=== PATIENT | female | born 1985 | race American Indian/Alaskan Native ===

== ENCOUNTER 2022-03-09 10:26 | Emergency (ER) | payer SELFPAY ==
[2022-03-09 11:50] LABS: Basophils % (Auto) 0.6 % (0.0-1.8); Eosinophils # (Auto) 0.1 K/mm3 (0.0-0.4); Eosinophils % (Auto) 1.1 % (0.0-4.3); Hematocrit 38.4 % (30.3-42.9); Hemoglobin 12.5 gm/dl (10.1-14.3); Lymphocytes # (Auto) 1.7 K/mm3 (1.2-5.4); Lymphocytes % (Auto) 29.5 % (13.4-35.0); Mean Corpuscular HGB Conc 33 % (30-34); Mean Corpuscular Volume 92 fl (79-97); Monocytes # (Auto) 0.4 K/mm3 (0.0-0.8); Monocytes % (Auto) 7.3 % (0.0-7.3); Platelet Count 344 K/mm3 (140-440); Red Blood Count 4.19 M/mm3 (3.65-5.03); Red Cell Distribution Width 15.1 % (13.2-15.2)
[2022-03-09 12:09] LABS: Alanine Aminotransferase 13 units/L (7-56); Albumin 4.2 g/dL (3.9-5); BUN/Creatinine Ratio 14; Blood Urea Nitrogen 13 mg/dL (7-17); Hemolysis Index 8
--- NOTE | 2022-03-09 14:01 | Emergency Department Report ---
ED Abdominal Pain HPI - General Chief Complaint: Abdominal Pain Stated Complaint: STOMACH/LOWER BACK PAIN Source: patient Mode of arrival: Ambulatory Limitations: No Limitations - History of Present Illness Initial Comments: 37-year-old female presents to the ED complaining of abdominal pain x4 days. She denies any nausea vomiting or diarrhea. She states last menstrual cycle was January. Patient states that she had a last bowel movement this a.m. but she state it was hard stool. Patient states that she is possibly constipated. Patient denies any vaginal discharge at present time. Denies any fever, chills , nausea or vomiting at present time. She denies any recent travel. No acute distress noted. No ill appearance noted. MD Complaint: abdominal pain Onset/Timin -: Gradual Location: diffuse Radiation: none Severity scale (0 -10): 4 Quality: aching Consistency: intermittent Improves With: nothing Worsens With: nothing Associated Symptoms: denies other symptoms - Related Data Previous Rx's Medication Instructions Recorded Last Taken Type Nitrofurantoin [place]/M-Cryst 100 mg PO Q12HR 10 Days #20 capsule 03/09/22 Unknown Rx [Macrobid CAP] Polyethylene Glycol 3350 [Miralax] 765 gm PO QDAY 30 Days #1 bottle 03/09/22 Unk nown Rx Allergies Allergy/AdvReac Type Severity Reaction Status Date / Time No Known Allergies Allergy Unverified 03/09/22 11:21 ED Review of Systems ROS: Stated complaint: STOMACH/LOWER BACK PAIN Other details as noted in HPI Constitutional: denies: chills, fever Eyes: denies: eye pain, eye discharge, vision change ENT: denies: ear pain, throat pain Respiratory: denies: cough, shortness of breath, wheezing Cardiovascular: denies: chest pain, palpitations Endocrine: no symptoms reported Gastrointestinal: abdominal pain. denies: nausea, diarrhea Genitourinary: denies: urgency, dysuria, discharge Musculoskeletal: denies: back pain, joint swelling, arthralgia Skin: denies: rash, lesions Neurological: denies: headache, weakness, paresthesias Psychiatric: denies: anxiety, depression Hematological/Lymphatic: denies: easy bleeding, easy bruising ED Past Medical Hx - Medications Home Medications: Home Medications Medication Instructions Recorded Confirmed Last Taken Type Nitrofurantoin [place]/M-Cryst 100 mg PO Q12HR 10 Days #20 capsule 03/09/22 Unknown Rx [Macrobid CAP] Polyethylene Glycol 3350 [Miralax] 765 gm PO QDAY 30 Days #1 bottle 03/09/22 Unknown Rx ED Physical Exam - General Limitations: No Limitations General appearance: alert, in no apparent distress - Head Head exam: Present: atraumatic, normocephalic - Eye Eye exam: Present: normal appearance - ENT ENT exam: Present: mucous membranes moist - Neck Neck exam: Present: normal inspection - Respiratory Respiratory exam: Present: normal lung sounds bilaterally. Absent: respiratory distress - Cardiovascular Cardiovascular Exam: Present: regular rate, normal rhythm. Absent: systolic murmur, diastolic murmur, rubs, gallop - GI/Abdominal GI/Abdominal exam: Present: soft, normal bowel sounds - Extremities Exam Extremities exam: Present: normal inspection - Back Exam Back exam: Present: normal inspection - Neurological Exam Neurological exam: Present: alert, oriented X3 - Psychiatric Psychiatric exam: Present: normal affect, normal mood - Skin Skin exam: Present: warm, dry, intact, normal color. Absent: rash ED Course Vital Signs 03/09/22 11:19 Temperature 97.6 F Pulse Rate 87 Respiratory 18 Rate Blood Pressure 172/102 [Left] O2 Sat by Pulse 99 Oximetry ED Medical Decision Making - Lab Data Result diagrams: 03/09/22 11:31 03/09/22 11:31 - Radiology Data [facility] [address] [place] [address] XRay Report Signed Patient: TATI JONAS MR#: [id number] : 1985 Acct:[id number] Age/Sex: 37 / F ADM Date: 03/09/22 Loc: ED Attending Dr: Ordering Physician: SHARIFA KIM Date of Service: 03/09/22 Procedure(s): XR abdomen 2V Accession Number(s): [id number] cc: SHARIFA KIM Fluoro Time In Minutes: ABDOMEN 2 VIEW(S) INDICATION / CLINICAL INFORMATION: abd pain possible constipation. COMPARISON: None available. FINDINGS: TUBES / LINES: None. BOWEL GAS PATTERN/EXTRALUMINAL GAS: No acute findings. Moderate constipation. No pneumatosis or secondary signs of free air. ADDITIONAL FINDINGS: No significant additional findings. IMPRESSION: 1. No acute findings. Moderate constipation. Signer Name: Rancho Guadarrama MD Signed: 03/09/2022 2:29 PM Workstation Name: [id number] Transcribed By: ISHAAN Dictated By: Rancho Guadarrama MD Electronically Authenticated By: Rancho Guadarrama MD Signed Date/Time: 03/09/221428 DD/ 28 TD/TT: Print Cancel - Medical Decision Making 37-year-old female presents to the ED complaining of abdominal pain x4 days. She denies any nausea vomiting or diarrhea. She states last menstrual cycle was January. Patient states that she had a last bowel movement this a.m. but she state it was hard stool. Patient states that she is possibly constipated. Patient denies any vaginal discharge at present time. Denies any fever, chills , nausea or vomiting at present time. She denies any recent travel. No acute distress noted. No ill appearance noted. Physical examination patient has tenderness around the periumbilical area. X-ray of the abdomen abdominal shows moderate constipation. UA significant for acute urinary tract infection Rechecked the patient is resting quietly quietly and comfortable and feeling better. I discussed the results of diagnostic study, my clinical impression and the plan for further treatment with the patient. Patient agrees with plan and discharge at this present time. All question addressed. I have given the patient instruction regarding a diagnosis ,expectation ,follow- up and return precaution. I explained to the patient that emergent condition may arise and to return to the ED for new worsen and any new persisting condition. I have explained the importance of following up with the primary care physician or referral physician listed below has instructed. The patient verbalized understanding of discharge instruction. Abnormal Lab Results 03/09/22 03/09/22 03/09/22 11:31 11:31 11:31 WBC 5.9 RBC 4.19 Hgb 12.5 Hct 38.4 MCV 92 MCH 30 MCHC 33 RDW 15.1 Plt Count 344 Lymph % (Auto) 29.5 [place] % (Auto) 7.3 Eos % (Auto) 1.1 Baso % (Auto) 0.6 Lymph # (Auto) 1.7 [place] # (Auto) 0.4 Eos # (Auto) 0.1 Baso # (Auto) 0.0 Seg Neutrophils % 61.5 Seg Neutrophils # 3.6 Sodium 139 Potassium 4.1 Chloride 106.7 Carbon Dioxide 22 Anion Gap 14 BUN 13 Creatinine 0.9 Estimated GFR > 60 BUN/Creatinine Ratio 14 Glucose 82 Calcium 9.0 Total Bilirubin < 0.20 AST 14 ALT 13 Alkaline Phosphatase 49 Total Protein 7.3 Albumin 4.2 Albumin/Globulin Ratio 1.4 Lipase 11 L HCG, Qual Negative Urine Color Urine Turbidity Urine pH Ur Specific [place] Urine Protein Urine Glucose (UA) Urine Ketones Urine Blood Urine Nitrite Urine Bilirubin Urine Urobilinogen Ur Leukocyte Esterase Urine WBC (Auto) Urine RBC (Auto) U Epithel Cells (Auto) Urine WBC Clumps Hyaline Casts Urine Mucus 03/09/22 Unknown WBC RBC Hgb Hct MCV MCH MCHC RDW Plt Count Lymph % (Auto) Salem % (Auto) Eos % (Auto) Baso % (Auto) Lymph # (Auto) Salem # (Auto) Eos # (Auto) Baso # (Auto) Seg Neutrophils % Seg Neutrophils # Sodium Potassium Chloride Carbon Dioxide Anion Gap BUN Creatinine Estimated GFR BUN/Creatinine Ratio Glucose Calcium Total Bilirubin AST ALT Alkaline Phosphatase Total Protein Albumin Albumin/Globulin Ratio Lipase HCG, Qual Urine Color Yellow Urine Turbidity Clear Urine pH 6.0 Ur Specific [place] 1.018 Urine Protein <15 mg/dl Urine Glucose (UA) Neg Urine Ketones Neg Urine Blood Neg Urine Nitrite Neg Urine Bilirubin Neg Urine Urobilinogen < 2.0 Ur Leukocyte Esterase Sm Urine WBC (Auto) 26.0 H Urine RBC (Auto) 4.0 U Epithel Cells (Auto) 6.0 Urine WBC Clumps Few Hyaline Casts 1 Urine Mucus Few Critical care attestation.: If time is entered above; I have spent that time in minutes in the direct care of this critically ill patient, excluding procedure time. ED Disposition Clinical Impression: Acute urinary tract infection Constipation Qualifiers: Constipation type: unspecified constipation type Qualified Code(s): K59.00 - Constipation, unspecified Disposition: HOME / SELF CARE / HOMELESS Is pt being admited?: No Does the pt Need Aspirin: No Condition: Stable Instructions: Abdominal Pain (ED), Antibiotic Medicine, Adult, [id number], Urinary Tract Infection, Adult, [id number], Constipation, Adult Additional Instructions: Take medication as prescribed Return to the ED for any worsening symptom Prescriptions: Nitrofurantoin [place]/M-Cryst [Macrobid CAP] 100 mg PO Q12HR 10 Days #20 capsule Polyethylene Glycol 3350 [Miralax] 765 gm PO QDAY 30 Days #1 bottle Referrals: STEPHANIE MEADE MD [Primary Care Provider] - 3-5 Days Forms: Work/School Release Form(ED) Time of Disposition: 15:55
--- NOTE | 2022-03-09 14:34 | XRay Report ---
ABDOMEN 2 VIEW(S) INDICATION / CLINICAL INFORMATION: abd pain possible constipation. COMPARISON: None available. FINDINGS: TUBES / LINES: None. BOWEL GAS PATTERN/EXTRALUMINAL GAS: No acute findings. Moderate constipation. No pneumatosis or secon gabby signs of free air. ADDITIONAL FINDINGS: No significant additional findings. IMPRESSION: 1. No acute findings. Moderate constipation. Signer Name: Rancho Guadarrama MD Signed: 03/09/2022 2:29 PM Workstation Name: [email or web address]
[2022-03-09 14:54] LABS: Bilirubin,Urine NEG (Negative); Blood,Urine NEG (Negative); Color,Urine Yellow (Yellow); Hyaline Casts,Urine 1 /LPF; Mucus,Urine FEW /HPF; Protein,Urine <15 mg/dL mg/dL (Negative); Urobilinogen,Urine < 2.0 mg/dL (<2.0)
[2022-03-09 16:24] VITALS: BP 122/83
== END 2022-03-09 16:22 | disposition home or self-care (01) ==
LOC: ED 10:26
DX: N39.0 Urinary tract infection, site not specified (principal); K59.00 Constipation, unspecified
CPT/HCPCS: 36415; 74019; 80053; 81001; 83690; 84703; 85025; 87086; 99283